=== PATIENT | female | born 1930 | race Caucasian/White ===

== ENCOUNTER 2018-04-28 00:01 | Emergency (ER) | payer OTHER ==
[2018-04-28] MEDS ORDERED: DERMABOND SKIN ADHESIVE TOP ONE (00:19)
[2018-04-28] MEDS ORDERED: TETANUS & DIPHTHERIA TOX,ADULT 0.5 ML VIAL ONE (00:20)
--- NOTE | 2018-04-28 01:50 | EDPHYS ---
Physician Documentation [facility] Name: Kelly Vences Age: 87 yrs Sex: Female : 1930 Arrival Date: 04/28/2018 Time: 00:02 Bed 16 Private MD: Ruperto Iglesias C ED Physician Dain Sánchez HPI: 04/28 01:45 This 87 yrs old Female presents to ER via Ambulatory with complaints of Fall pm1 Injury. 01:45 Details of fall: The patient fell from an upright position, while standing. Onset: The pm1 symptoms/episode began/occurred just prior to arrival. Associated injuries: The patient sustained left hand, dorsal aspect of right forearm. Severity of symptoms: in the emergency department the symptoms are unchanged. The patient has experienced similar episodes in the past, a few times, but today's symptoms are worse. The patient has not recently seen a physician, the patient's primary care provider is Dr. Iglesias. Patient was applying eye drops to her and got distracted by the TV and lost her balanced when she turned to look at the [employer] game. Patient fell and tore the skin on her left hand and right forearm. No headache, head injury, neck pain, LOC. Historical: - Allergies: 00:21 Sulfa (Sulfonamide Antibiotics); bb - Home Meds: 00:21 omeprazole 40 mg Oral cpDR 1 cap once daily [Active]; Amiodarone 50 mg Oral once daily bb [Active]; amlodipine 5 mg tab 1 tab once daily [Active]; Eliquis 2.5 mg oral tab 1 tab 2 times per day [Active]; Ambien Oral nightly [Active]; biotin oral oral [Active]; fish oil twice a day [Active]; viteye [Active]; vit D3 5000 mg [Active]; CoQ10 daily [Active]; valsartan 160 mg oral tab 1 tab 2 times per day [Active]; metoprolol tartrate 50 mg Oral tab 1 tab once daily [Active]; - Immunization history:: Adult Immunizations up to date. - Social history:: Smoking status: Patient/guardian denies using tobacco, Patient/guardian denies using alcohol, street drugs. - Ebola Screening: : No symptoms or risks identified at this time. ROS: 01:45 Constitutional: Negative for fever, chills, and weight loss, Eyes: Negative for injury, pm1 pain, redness, and discharge, ENT: Negative for injury, pain, and discharge, Neck: Negative for injury, pain, and swelling, Cardiovascular: Negative for chest pain, palpitations, and edema, Respiratory: Negative for shortness of breath, cough, wheezing, and pleuritic chest pain, Abdomen/GI: Negative for abdominal pain, nausea, vomiting, diarrhea, and constipation, Back: Negative for injury and pain, : Negative for injury, bleeding, discharge, and swelling, MS/Extremity: Negative for injury and deformity. 01:45 Neuro: Negative for headache, weakness, numbness, tingling, and seizure. 01:45 Skin: Positive for of the dorsal aspect of right forearm and left hand, skin tear. Exam: 01:45 Constitutional: This is a well developed, well nourished patient who is awake, alert, pm1 and in no acute distress. Head/Face: Normocephalic, atraumatic. Eyes: Pupils equal round and reactive to light, extra-ocular motions intact. Lids and lashes normal. Conjunctiva and sclera are non-icteric and not injected. Cornea within normal limits. Periorbital areas with no swelling, redness, or edema. ENT: Nares patent. No nasal discharge, no septal abnormalities noted. Tympanic membranes are normal and external auditory canals are clear. Oropharynx with no redness, swelling, or masses, exudates, or evidence of obstruction, uvula midline. Mucous membranes moist. Neck: Trachea midline, no thyromegaly or masses palpated, and no cervical lymphadenopathy. Supple, full range of motion without nuchal rigidity, or vertebral point tenderness. No Meningismus. Chest/axilla: Normal chest wall appearance and motion. Nontender with no deformity. No lesions are appreciated. Cardiovascular: Regular rate and rhythm with a normal S1 and S2. No gallops, murmurs, or rubs. Normal PMI, no JVD. No pulse deficits. Respiratory: Lungs have equal breath sounds bilaterally, clear to auscultation and percussion. No rales, rhonchi or wheezes noted. No increased work of breathing, no retractions or nasal flaring. Abdomen/GI: Soft, non-tender, with normal bowel sounds. No distension or tympany. No guarding or rebound. No evidence of tenderness throughout. Back: No spinal tenderness. No costovertebral tenderness. Full range of motion. 01:45 Neuro: Awake and alert, GCS 15, oriented to person, place, time, and situation. Cranial nerves II-XII grossly intact. Motor strength 5/5 in all extremities. Sensory grossly intact. Cerebellar exam normal. Normal gait. 01:45 Skin: Appearance: normal except for affected area, injury, skin tear. Vital Signs: 00:21 BP 179 / 76; Pulse 80; Resp 16; Temp 98.2(O); Pulse Ox 99% on R/A; Weight 56.7 kg (R); bb Height 5 ft. 5 in. (165.10 cm); Pain 0/10; 01:25 BP 164 / 71; Pulse 70; Pulse Ox 100% on R/A; rv 00:21 Body Mass Index 20.80 (56.70 kg, 165.10 cm) bb Harwich Coma Score: 00:26 Eye Response: spontaneous(4). Verbal Response: oriented(5). Motor Response: obeys rv commands(6). Total: 15. Trauma Score (Adult): 00:26 Eye Response: spontaneous(1); Verbal Response: oriented(1); Motor Response: obeys rv commands(2); Systolic BP: > 89 mm Hg(4); Respiratory Rate: 10 to 29 per min(4); Harwich Score: 15; Trauma Score: 12 Laceration: 02:15 Wound Repair of 15cm ( 5.9in ) subcutaneous laceration to dorsal aspect of right pm1 forearm and left hand. skin tear. Distal neuro/vascular/tendon intact. Wound prep: Extensive cleansing with hibiclenz by nurse, Wound irrigation with saline by nurse, Wound explored extensively, Copious irrigation. Skin closed with 1-0 Adhesive skin closure using Dermabond. Patient tolerated well. MDM: 00:08 Patient medically screened. pm1 01:48 Data reviewed: vital signs. Data interpreted: Pulse oximetry: on room air is 100 %. pm1 Interpretation: normal. Counseling: I had a detailed discussion with the patient and/or guardian regarding: the historical points, exam findings, and any diagnostic results supporting the discharge/admit diagnosis, the need for outpatient follow up, to return to the emergency department if symptoms worsen or persist or if there are any questions or concerns that arise at home. 04/28 00:09 Order name: Dermabond; Complete Time: 01:58 pm1 04/28 00:09 Order name: Wound Care; Complete Time: 00:33 pm1 Administered Medications: 00:33 Drug: Tetanus-Diphtheria Toxoid Adult 0.5 ml {Gaming Commissioner: [employer]. Exp: rv 04/28/2021. Lot #: [id number]. } Route: IM; Site: left deltoid; 01:58 Follow up: Response: No adverse reaction rv Disposition: 06:44 Co-signature as Attending Physician, Dain Sánchez MD I agree with the assessment and kenji plan of care. Disposition: 04/28/18 01:49 Discharged to Home. Impression: Skin tear. - Condition is Stable. - Discharge Instructions: Tissue Adhesive Wound Care. - Medication Reconciliation Form, Thank You Letter, Antibiotic Education, Prescription Opioid Use form. - Follow up: Emergency Department; When: As needed; Reason: Worsening of condition. Follow up: Ruperto Iglesias MD; When: 2 - 3 days; Reason: Wound Recheck, Recheck today's complaints, Continuance of care, Re-evaluation by your physician. - Problem is new. - Symptoms have improved. Signatures: Dain Sánchez MD MD cha Ballard, Brenda, OLLIE RN Rohit Byers NP BARREL LINE OPERATOR pm1 Gary Trammell RN RN rv Corrections: (The following items were deleted from the chart) 02:00 01:49 04/28/2018 01:49 Discharged to Home. Impression: Skin tear. Condition is Stable. rv Forms are Medication Reconciliation Form, Thank You Letter, Antibiotic Education, Prescription Opioid Use. Follow up: Emergency Department; When: As needed; Reason: Worsening of condition. Follow up: Ruperto Iglesias; When: 2 - 3 days; Reason: Wound Recheck, Recheck today's complaints, Continuance of care, Re-evaluation by your physician. Problem is new. Symptoms have improved. pm1
--- NOTE | 2018-04-28 01:50 | ER ---
Nurse's Notes [facility] Name: Kelly Vences Age: 87 yrs Sex: Female : 1930 Arrival Date: 04/28/2018 Time: 00:02 Bed 16 Private MD: Ruperto Iglesias C Diagnosis: Skin tear Presentation: 04/28 00:12 Presenting complaint: Patient states: she was watching the Chorus game while putting bb eye drops in her husbands eyes when she heard clapping on the television and turned to look loosing her balance and falling receiving skin tears to right forearm and left wrist. Pt denies hitting her head or LOC. Transition of care: patient was not received from another setting of care. Onset of symptoms was April 28, 2018. Risk Assessment: Do you want to hurt yourself or someone else? Patient reports no desire to harm self or others. Initial Sepsis Screen: Does the patient meet any 2 criteria? No. Patient's initial sepsis screen is negative. Does the patient have a suspected source of infection? No. Patient's initial sepsis screen is negative. Care prior to arrival: None. 00:12 Method Of Arrival: Ambulatory bb 00:12 Acuity: JUSTICE 5 bb 01:59 Mechanism of Injury: No Mechanism of Injury. rv Historical: - Allergies: 00:21 Sulfa (Sulfonamide Antibiotics); bb - Home Meds: 00:21 omeprazole 40 mg Oral cpDR 1 cap once daily [Active]; Amiodarone 50 mg Oral once daily bb [Active]; amlodipine 5 mg tab 1 tab once daily [Active]; Eliquis 2.5 mg oral tab 1 tab 2 times per day [Active]; Ambien Oral nightly [Active]; biotin oral oral [Active]; fish oil twice a day [Active]; viteye [Active]; vit D3 5000 mg [Active]; CoQ10 daily [Active]; valsartan 160 mg oral tab 1 tab 2 times per day [Active]; metoprolol tartrate 50 mg Oral tab 1 tab once daily [Active]; - Immunization history:: Adult Immunizations up to date. - Social history:: Smoking status: Patient/guardian denies using tobacco, Patient/guardian denies using alcohol, street drugs. - Ebola Screening: : No symptoms or risks identified at this time. Screenin:24 Abuse screen: Denies threats or abuse. Denies injuries from another. Nutritional rv screening: No deficits noted. Tuberculosis screening: No symptoms or risk factors identified. Fall Risk Fall in past 12 months (25 points). No secondary diagnosis (0 pts). No IV (0 pts). Ambulatory Aid- None/Bed Rest/Nurse Assist (0 pts). Gait- Normal/Bed Rest/Wheelchair (0 pts) Mental Status- Oriented to own ability (0 pts). Total Sanders Fall Scale indicates Low Risk Score (25-44 pts). Fall prevention measures have been instituted. Side Rails Up X 2 Placed close to Nursing Station Frequent Obs/Assesments occuring Family Present and informed to notify staff if they need to leave bedside As available Patient and Family Educated on Fall Prevention Program and strategies. Primary Survey: 00:26 Breathing/Chest: Respiratory pattern: regular. Circulation: Pulses: palpable right rv radial artery and left radial artery. Disability Alert. Reassessment Breathing/Chest Respiratory pattern Regular Circulation Pulses Palpable Disability Alert. Assessment: 00:23 General: Appears in no apparent distress. comfortable, Behavior is calm, cooperative. rv Pain: Complains of pain in right arm and left arm. Neuro: Level of Consciousness is awake, alert, obeys commands, Oriented to person, place, time, situation. Cardiovascular: Capillary refill < 3 seconds. Respiratory: Airway is patent. GI: No signs and/or symptoms were reported involving the gastrointestinal system. : No signs and/or symptoms were reported regarding the genitourinary system. EENT: No signs and/or symptoms were reported regarding the EENT system. Derm: Wound noted right arm and left arm. 01:25 Reassessment: Patient appears in no apparent distress at this time. Patient and/or rv family updated on plan of care and expected duration. Pain level reassessed. Patient is alert, oriented x 3, equal unlabored respirations, skin warm/dry/pink. Vital Signs: 00:21 BP 179 / 76; Pulse 80; Resp 16; Temp 98.2(O); Pulse Ox 99% on R/A; Weight 56.7 kg (R); bb Height 5 ft. 5 in. (165.10 cm); Pain 0/10; 01:25 BP 164 / 71; Pulse 70; Pulse Ox 100% on R/A; rv 00:21 Body Mass Index 20.80 (56.70 kg, 165.10 cm) bb Amelia Coma Score: 00:26 Eye Response: spontaneous(4). Verbal Response: oriented(5). Motor Response: obeys rv commands(6). Total: 15. Trauma Score (Adult): 00:26 Eye Response: spontaneous(1); Verbal Response: oriented(1); Motor Response: obeys rv commands(2); Systolic BP: > 89 mm Hg(4); Respiratory Rate: 10 to 29 per min(4); Amelia Score: 15; Trauma Score: 12 ED Course: 00:02 Patient arrived in ED. es 00:05 Ruperto Iglesias MD is Private Physician. es 00:07 Paco Caballero, RN is Primary Nurse. ao 00:08 Rohit Mazariegos [facility]. pm1 00:08 Dain Sánchez MD is Attending Physician. pm1 00:15 Triage completed. bb 00:21 Arm band placed on Patient placed in an exam room, on a stretcher, on pulse oximetry. bb Family accompanied patient. 00:27 Patient has correct armband on for positive identification. Bed in low position. Call rv light in reach. Side rails up X2. Adult w/ patient. Pulse ox on. NIBP on. 00:27 Patient maintains SpO2 saturation greater than 95% on room air. rv 01:49 Ruperto Iglesias MD is Referral Physician. pm1 01:58 No provider procedures requiring assistance completed. Patient did not have IV access rv during this emergency room visit. Administered Medications: 00:33 Drug: Tetanus-Diphtheria Toxoid Adult 0.5 ml {Powder Room Attendant: [employer]. Exp: rv 04/28/2021. Lot #: [id number]. } Route: IM; Site: left deltoid; 01:58 Follow up: Response: No adverse reaction rv Outcome: 01:49 Discharge ordered by MD. pm1 01:58 Discharged to home ambulatory. rv 01:58 Condition: good 01:58 Discharge instructions given to patient, family, Instructed on discharge instructions, follow up and referral plans. Demonstrated understanding of instructions, follow-up care. 01:59 Patient's length of stay was not longer than 2 hours. rv 02:00 Patient left the ED. rv Signatures: Rosalba Luna Brenda, RN RN bb Paco Caballero RN RN ao Marinas, Rohit, MANAGER OF [employer] SALES MANAGER OF [employer] SALES pm1 Gary Trammell, RN RN rv
== END 2018-04-28 02:00 | disposition home or self-care (01) ==
LOC: ER 00:01
PROC: 0JQK0ZZ Repair Left Hand Subcutaneous Tissue and Fascia, Open Approach (ICD-10-PCS; principal; 2018-04-28)
PROC: 0JQG0ZZ Repair Right Lower Arm Subcutaneous Tissue and Fascia, Open Approach (ICD-10-PCS; 2018-04-28)
DX: S51.812A Laceration without foreign body of left forearm, initial encounter (principal); W18.30XA Fall on same level, unspecified, initial encounter; Y93.9 Activity, unspecified; Y92.019 Unspecified place in single-family (private) house as the place of occurrence of the external cause
CPT/HCPCS: 90714; 99284